=== PATIENT | male | born 1995 ===

== ENCOUNTER 2018-11-11 04:54 | Inpatient (IN) | payer OTHER ==
--- NOTE | 2018-11-11 05:40 | ED PDOC ---
HPI: Psych/Substance Abuse Time Seen by Provider: 11/11/18 05:23 Chief Complaint (Nursing): Psychiatric Evaluation Chief Complaint (Provider): crisis eval History Per: Patient, EMS Additional Complaint(s): 23 y/o male brought in by EMS for psychiatric evaluation. As per EMS, patient's friend called 911 stating he expressed thoughts of suicide. Patient admits to drinking last night, states he was suicidal earlier because his parents forgot about him on his birthday and [place]. Patient denies suicidal/homicidal ideations at present, hallucinations, acute physical complaints. Past Medical History Reviewed: Historical Data, Nursing Documentation, Vital Signs Vital Signs: Last Vital Signs Temp 98.0 F 11/11/18 05:12 Pulse 96 H 11/11/18 05:12 Resp 17 11/11/18 05:12 BP 154/75 H 11/11/18 05:12 Pulse Ox 99 11/11/18 05:12 - Medical History PMH: Depression, HTN - Surgical History Surgical History: No Surg Hx - Family History Family History: States: No Known Family Hx - Living Arrangements Living Arrangements: Alone - Social History Current smoker - smoking cessation education provided: No Alcohol: Occasional Drugs: Cannabis - Allergies Allergies/Adverse Reactions: Allergies Allergy/AdvReac Type Severity Reaction Status Date / Time Unobtainable Allergy Verified 11/11/18 05:37 Review of Systems ROS Statement: Except As Marked, All Systems Reviewed And Found Negative Psych: Positive for: Suicidal ideation Physical Exam - Reviewed Nursing Documentation Reviewed: Yes Vital Signs Reviewed: Yes - Physical Exam Appears: Positive for: Well, Non-toxic, No Acute Distress Head Exam: Positive for: ATRAUMATIC, NORMAL INSPECTION, NORMOCEPHALIC Skin: Positive for: Normal Color Eye Exam: Positive for: Normal appearance ENT: Positive for: Normal ENT Inspection Cardiovascular/Chest: Positive for: Regular Rate, Rhythm Respiratory: Positive for: Normal Breath Sounds Gastrointestinal/Abdominal: Positive for: Normal Exam Back: Positive for: Normal Inspection Extremity: Positive for: Normal ROM Neurologic/Psych: Positive for: Alert, Oriented (x3) - ECG O2 Sat by Pulse Oximetry: 99 - Progress ED Course And Treament: -cbc -cmp -alcohol -urine drug screen -urinalysis -crisis eval -1:1 Disposition - Clinical Impression Clinical Impression: Suicidal ideations - Patient ED Disposition Is Patient to be Admitted: No - Disposition Disposition Time: 06:00 Condition: STABLE Forms: [employer] (Sinhala) Patient Signed Over To: Karey Thacker Handoff Comments: pending labs, crisis eval
[2018-11-11 06:32] LABS: BASO # 0.1 K/uL (0.0-0.2); BASO % 0.7 % (0.0-2.0); EOS # 0.1 K/uL (0.0-0.7); EOS % 1.4 % (0.0-4.0); LYMPH # 2.6 K/uL (1.0-4.3); LYMPH % 29.8 % (20.0-40.0); MEAN CELL VOLUME 86.7 fl (80.0-94.0); MEAN CORPUSCULAR HEMOGLOBIN 29.6 pg (27.0-31.0); MEAN CORPUSCULAR HGB CONC 34.1 g/dL (33.0-37.0); MEAN PLATELET VOLUME 7.4 fl (7.2-11.7); MONO # 0.7 K/uL (0.0-0.8); MONO % 7.5 % (0.0-10.0); NEUT # 5.3 K/uL (1.8-7.0); NEUT % 60.6 % (50.0-75.0); NRBC % 0.2 % (0.0-0.0); RBC 5.41 Mil/uL (4.40-5.90); WHITE BLOOD COUNT 8.7 K/uL (4.8-10.8)
[2018-11-11 06:42] LABS: ALB/GLOB RATIO 1.2 (1.0-2.1); ALBUMIN 4.7 g/dL (3.5-5.0); ALT/SGPT 65 U/L (21-72); AST/SGOT 47 U/L (17-59); BLOOD UREA NITROGEN 9 mg/dl (9-20); GFR NON-AFRICAN AMERICAN > 60
--- NOTE | 2018-11-11 07:18 | ED PDOC ---
- Laboratory Results Result Diagrams: 11/11/18 06:15 11/11/18 06:15 - ECG O2 Sat by Pulse Oximetry: 99 Medical Decision Making Medical Decision Makin Patient care endorsed from Dr. Thacker to this provider pending crisis evaluation and reevaluation. Medically stable for psychiatric admission Scribe Attestation: Documented by Renata Grimm, acting as a scribe for Vincent Martinez MD. Provider Scribe Attestation: All medical record entries made by the Scribe were at my direction and personally dictated by me. I have reviewed the chart and agree that the record accurately reflects my personal performance of the history, physical exam, medical decision making, and the department course for this patient. I have also personally directed, reviewed, and agree with the discharge instructions and disposition. Disposition - Clinical Impression Clinical Impression: Suicidal ideations - POA Present On Arrival: None - Disposition Disposition: Admitted as In-Patient Disposition Time: 12:51 Condition: FAIR Forms: [employer] (Montenegrin)
[2018-11-11 08:17] LABS: URINE BILIRUBIN NEGATIVE (NEGATIVE); URINE BLOOD NEGATIVE (NEGATIVE); URINE CLARITY CLEAR (Clear); URINE COLOR YELLOW (YELLOW); URINE GLUCOSE (UA) NEG (NEGATIVE); URINE LEUKOCYTE ESTERASE NEG Leu/uL (Negative); URINE PROTEIN NEGATIVE (NEGATIVE); URINE UROBILINOGEN 0.2-1.0 mg/dL (0.2-1.0)
[2018-11-11 08:31] LABS: BARBITURATES, UR NEGATIVE (NEGATIVE); BENZODIAZEPINES, UR NEGATIVE (NEGATIVE); OPIATES, UR NEGATIVE (NEGATIVE); PHENCYCLIDINE, UR NEGATIVE (NEGATIVE)
--- NOTE | 2018-11-11 13:02 | CP.PCM.CON ---
History of Present Illness - History of Present Illness History of Present Illness: face to face evaluation pt is 23ys old male with previous psychiatric diagnosis of bipolar disorder and ADHD, borught to ER by police after texting a friend a suicidal note, providing him his bank and life insurance information pt reported has been increasingly depressed due to lack of support by his family feeling abandoned by his mother and also increase stress at work, reported that while intoxicated all the emotions came out and he started feeling that his life is worthless pt is increasinlgy anxious tearful and overwhelmed collateral information Friend reports that he received a text message from the pt stating that he was going to kill himself. This PES observed text message which appeared detailed and elaborate. Message did not contain a suicide plan but stated that pt would be before friend arrived and pt provide friend with pin number to his bank account. Friend reports pt's trigger being that no one reached out to him on his birthday nor [place]. Friend reports pt was very upset with his mother for forgetting about him on his birthday. Friend reports that pt employment has been a bit of a stressor for him as well. Friend states that pt recently obtained his job after leaving [employer]. Friend states since leaving [employer] he was offered an important position that entails a lot of responsibilities. Past Patient History - Past Social History Alcohol: Occasional Drugs: Cannabis - CARDIAC Hx Hypertension: Yes - PSYCHIATRIC Hx Depression: Yes - SURGICAL HISTORY Hx Surgeries: No - ANESTHESIA Hx Anesthesia: No Meds Allergies/Adverse Reactions: Allergies Allergy/AdvReac Type Severity Reaction Status Date / Time No Known Allergies Allergy Verified 11/11/18 07:47 Physical Exam - Psychiatric Exam Additional comments: pt seen in bed partial eye contact depressed mood tearful affect, thought form circumstantial,, passive suicidal ideation no plan denied homicidal ideation denied perceptual disturbances, alert awake ox3 Results - Vital Signs Recent Vital Signs: Last Vital Signs Temp 98.0 F 11/11/18 05:12 Pulse 96 H 11/11/18 05:12 Resp 17 11/11/18 05:12 BP 154/75 H 11/11/18 05:12 Pulse Ox 99 11/11/18 12:51 - Labs Result Diagrams: 11/11/18 06:15 11/11/18 06:15 Labs: Laboratory Results - last 24 hr 12/29/18 12/29/18 12/29/18 06:15 06:15 08:05 WBC 8.7 RBC 5.41 Hgb 16.0 Hct 46.9 MCV 86.7 MCH 29.6 MCHC 34.1 RDW 13.0 Plt Count 321 MPV 7.4 Neut % (Auto) 60.6 Lymph % (Auto) 29.8 [place] % (Auto) 7.5 Eos % (Auto) 1.4 Baso % (Auto) 0.7 Neut # (Auto) 5.3 Lymph # (Auto) 2.6 [place] # (Auto) 0.7 Eos # (Auto) 0.1 Baso # (Auto) 0.1 Sodium 144 Potassium 3.9 Chloride 108 H Carbon Dioxide 21 L Anion Gap 19 BUN 9 Creatinine 0.7 L Est GFR ( Amer) > 60 Est GFR (Non-Af Amer) > 60 Random Glucose 116 H Calcium 9.0 Total Bilirubin 0.2 AST 47 ALT 65 Alkaline Phosphatase 88 Total Protein 8.5 H Albumin 4.7 Globulin 3.8 Albumin/Globulin Ratio 1.2 Urine Color Urine Clarity Urine pH Ur Specific [place] Urine Protein Urine Glucose (UA) Urine Ketones Urine Blood Urine Nitrate Urine Bilirubin Urine Urobilinogen Ur Leukocyte Esterase Urine RBC (Auto) Urine Microscopic WBC Urine Opiates Screen Negative Urine Methadone Screen Negative Ur Barbiturates Screen Negative Ur Phencyclidine Scrn Negative Ur Amphetamines Screen Negative U Benzodiazepines Scrn Negative U Oth Cocaine Metabols Negative U Cannabinoids Screen Positive H Alcohol, Quantitative 135 H 11/11/18 08:05 WBC RBC Hgb Hct MCV MCH MCHC RDW Plt Count MPV Neut % (Auto) Lymph % (Auto) [place] % (Auto) Eos % (Auto) Baso % (Auto) Neut # (Auto) Lymph # (Auto) [place] # (Auto) Eos # (Auto) Baso # (Auto) Sodium Potassium Chloride Carbon Dioxide Anion Gap BUN Creatinine Est GFR ( Amer) Est GFR (Non-Af Amer) Random Glucose Calcium Total Bilirubin AST ALT Alkaline Phosphatase Total Protein Albumin Globulin Albumin/Globulin Ratio Urine Color Yellow Urine Clarity Clear Urine pH 6.0 Ur Specific [place] 1.017 Urine Protein Negative Urine Glucose (UA) Neg Urine Ketones Negative Urine Blood Negative Urine Nitrate Negative Urine Bilirubin Negative Urine Urobilinogen 0.2-1.0 Ur Leukocyte Esterase Neg Urine RBC (Auto) 1 Urine Microscopic WBC < 1 Urine Opiates Screen Urine Methadone Screen Ur Barbiturates Screen Ur Phencyclidine Scrn Ur Amphetamines Screen U Benzodiazepines Scrn U Oth Cocaine Metabols U Cannabinoids Screen Alcohol, Quantitative Assessment & Plan - Assessment and Plan (Free Text) Assessment: bipolar disorder depressed Plan: pt at current mental status is a risk for suicide pt not agreeable for voluntry admission pt will be referred for [facility] for involuntary admission
[2018-11-11 13:46] VITALS: O2SAT 98
[2018-11-11] MEDS ORDERED: Alum-Mag Hydrox-Simethicone Susp (30 mL) PO PRN (14:14)
[2018-11-11] MEDS ORDERED: Magnesium Hydroxide Susp 30 ml UD PO PRN (14:14)
[2018-11-11] MEDS ORDERED: DiphenhydrAMINE 50 mg/ml Inj IM PRN (14:14)
--- NOTE | 2018-11-11 15:12 | PCM.BM ---
Treatment assets and liabiliti Patient Assests: cooperative, self-reliant, ADL independent, physically healthy, financial stabiity Patient Liabilities: relationship conflicts, substance abuse - Milieu Protocol Maintain good personal hygiene: daily Encourage regular showers, daily Remind patient to perform daily oral care, daily Assist patient to perform ADL's Conduct patient checks and document Observation sheet: Q15 minutes Maintain personal safety: every shift Educate patient to report safety concerns to staff, every shift Monitor environment for contraband/sharps Medication safety: Monitor for expected outcome, potential side effects: daily, Assess barriers to learning: daily, Assess readiness for medication education: daily
--- NOTE | 2018-11-11 15:18 | RAD ---
Date of service: 11/11/2018 HISTORY: cough COMPARISON: No prior. FINDINGS: LUNGS: No active pulmonary disease. PLEURA: No significant pleural effusion identified, no pneumothorax apparent. CARDIOVASCULAR: No aortic atherosclerotic calcification present. Normal cardiac size. No pulmonary vascular congestion. OSSEOUS STRUCTURES: No significant abnormalities. VISUALIZED UPPER ABDOMEN: Normal. OTHER FINDINGS: None. IMPRESSION: No active disease.
--- NOTE | 2018-11-11 15:23 | CP.PCM.CON ---
History of Present Illness - History of Present Illness History of Present Illness: 23 yo male with history of Bipolar DO and ADHD admitted in psyche unit because of suicidal ideation + Review of Systems - Review of Systems All systems: reviewed and no additional remarkable complaints except (aside from those mentioned above, 12 point system review were negative by me) Past Patient History - Tetanus Immunizations Tetanus Immunization: Unknown - Past Social History Smoking Status: Never Smoked Chewing Tobacco Use: No Cigar Use: No Alcohol: Occasional Drugs: Cannabis - CARDIAC Hx Cardiac Disorders: Yes (HTN dx x1yr) Hx Hypertension: Yes (x 1 yr) - PULMONARY Hx Respiratory Disorders: No - NEUROLOGICAL Hx Neurological Disorder: No - HEENT Hx HEENT Problems: No - RENAL Hx Chronic Kidney Disease: No - ENDOCRINE/METABOLIC Hx Endocrine Disorders: No - HEMATOLOGICAL/ONCOLOGICAL Hx Blood Disorders: No - INTEGUMENTARY Hx Dermatological Problems: No - MUSCULOSKELETAL/RHEUMATOLOGICAL Hx Musculoskeletal Disorders: No - GASTROINTESTINAL Hx Gastrointestinal Disorders: No - GENITOURINARY/GYNECOLOGICAL Hx Genitourinary Disorders: No - PSYCHIATRIC Hx Depression: Yes Hx Physical Abuse: No Hx Sexual Abuse: No Hx Substance Use: Yes (pot about once a month) - SURGICAL HISTORY Hx Surgeries: No - ANESTHESIA Hx Anesthesia: No Meds Allergies/Adverse Reactions: Allergies Allergy/AdvReac Type Severity Reaction Status Date / Time No Known Allergies Allergy Verified 11/11/18 07:47 - Medications Medications: Current Medications Acetaminophen (Tylenol 325mg Tab) 650 mg PO Q4 PRN PRN Reason: Pain, Mild (4-7) Al Hydrox/Mg Hydrox/Simethicone (Maalox Plus 30 Ml) 30 ml PO Q4 PRN PRN Reason: Dyspepsia Aripiprazole (Abilify) 15 mg PO DAILY DAVON Diphenhydramine HCl (Benadryl) 50 mg IM Q6 PRN PRN Reason: Extrapyramidal S/S Unable PO Diphenhydramine HCl (Benadryl) 50 mg PO HS PRN PRN Reason: Sleep Diphenhydramine HCl (Benadryl) 50 mg PO Q6 PRN PRN Reason: for sleep Haloperidol (Haldol) 5 mg PO Q4 PRN PRN Reason: Agitation Haloperidol Lactate (Haldol) 5 mg IM Q4 PRN PRN Reason: Agitation, Unable to Take PO Lorazepam (Ativan) 2 mg IM Q4 PRN PRN Reason: Anxiety/Agitation,Unable PO Lorazepam (Ativan) 2 mg PO Q8 PRN PRN Reason: Anxiety Magnesium Hydroxide (Milk Of Magnesia) 30 ml PO HS PRN PRN Reason: Constipation Trazodone HCl (Desyrel) 50 mg PO HS PRN PRN Reason: Sleep Physical Exam - Constitutional Appears: No Acute Distress - Head Exam Head Exam: ATRAUMATIC - Eye Exam Eye Exam: absent: Scleral icterus - ENT Exam ENT Exam: Mucous Membranes Moist - Neck Exam Neck exam: Negative for: Meningismus - Respiratory Exam Respiratory Exam: absent: Rales, Rhonchi, Wheezes, Respiratory Distress - Cardiovascular Exam Cardiovascular Exam: REGULAR RHYTHM, +S1, +S2 - GI/Abdominal Exam GI & Abdominal Exam: Soft. absent: Tenderness - Rectal Exam Rectal Exam: Deferred - Extremities Exam Extremities exam: Negative for: calf tenderness, pedal edema - Back Exam Back exam: NORMAL INSPECTION - Neurological Exam Neurological exam: Alert, Oriented x3 - Psychiatric Exam Psychiatric exam: Normal Affect - Skin Skin Exam: Dry, Intact Results - Vital Signs Recent Vital Signs: Last Vital Signs Temp 98.5 F 11/11/18 13:53 Pulse 78 11/11/18 13:53 Resp 18 11/11/18 14:05 BP 143/87 11/11/18 13:53 Pulse Ox 98 11/11/18 13:53 - Labs Result Diagrams: 11/11/18 06:15 11/11/18 06:15 Labs: Laboratory Results - last 24 hr 11/11/18 11/11/18 11/11/18 06:15 06:15 08:05 WBC 8.7 RBC 5.41 Hgb 16.0 Hct 46.9 MCV 86.7 MCH 29.6 MCHC 34.1 RDW 13.0 Plt Count 321 MPV 7.4 Neut % (Auto) 60.6 Lymph % (Auto) 29.8 [place] % (Auto) 7.5 Eos % (Auto) 1.4 Baso % (Auto) 0.7 Neut # (Auto) 5.3 Lymph # (Auto) 2.6 [place] # (Auto) 0.7 Eos # (Auto) 0.1 Baso # (Auto) 0.1 Sodium 144 Potassium 3.9 Chloride 108 H Carbon Dioxide 21 L Anion Gap 19 BUN 9 Creatinine 0.7 L Est GFR ( Amer) > 60 Est GFR (Non-Af Amer) > 60 Random Glucose 116 H Calcium 9.0 Total Bilirubin 0.2 AST 47 ALT 65 Alkaline Phosphatase 88 Total Protein 8.5 H Albumin 4.7 Globulin 3.8 Albumin/Globulin Ratio 1.2 Urine Color Urine Clarity Urine pH Ur Specific [place] Urine Protein Urine Glucose (UA) Urine Ketones Urine Blood Urine Nitrate Urine Bilirubin Urine Urobilinogen Ur Leukocyte Esterase Urine RBC (Auto) Urine Microscopic WBC Urine Opiates Screen Negative Urine Methadone Screen Negative Ur Barbiturates Screen Negative Ur Phencyclidine Scrn Negative Ur Amphetamines Screen Negative U Benzodiazepines Scrn Negative U Oth Cocaine Metabols Negative U Cannabinoids Screen Positive H Alcohol, Quantitative 135 H 11/11/18 08:05 WBC RBC Hgb Hct MCV MCH MCHC RDW Plt Count MPV Neut % (Auto) Lymph % (Auto) [place] % (Auto) Eos % (Auto) Baso % (Auto) Neut # (Auto) Lymph # (Auto) [place] # (Auto) Eos # (Auto) Baso # (Auto) Sodium Potassium Chloride Carbon Dioxide Anion Gap BUN Creatinine Est GFR ( Amer) Est GFR (Non-Af Amer) Random Glucose Calcium Total Bilirubin AST ALT Alkaline Phosphatase Total Protein Albumin Globulin Albumin/Globulin Ratio Urine Color Yellow Urine Clarity Clear Urine pH 6.0 Ur Specific [place] 1.017 Urine Protein Negative Urine Glucose (UA) Neg Urine Ketones Negative Urine Blood Negative Urine Nitrate Negative Urine Bilirubin Negative Urine Urobilinogen 0.2-1.0 Ur Leukocyte Esterase Neg Urine RBC (Auto) 1 Urine Microscopic WBC < 1 Urine Opiates Screen Urine Methadone Screen Ur Barbiturates Screen Ur Phencyclidine Scrn Ur Amphetamines Screen U Benzodiazepines Scrn U Oth Cocaine Metabols U Cannabinoids Screen Alcohol, Quantitative Assessment & Plan (1) Suicidal ideations Status: Acute Comment: psyche is managing
[2018-11-12 07:41] LABS: T4 6.42 ug/dl (5.5-11.0)
--- NOTE | 2018-11-12 12:52 | PCM.PSYCH ---
Initial Psychiatric Evaluation - Initial Psychiatric Evaluation Type of Admission: Voluntary Legal Status: Capacity Chief Complaint (in patient's own words): I wanted to get some care and attention History of Present Illness and Precipitating Events: pt is 23ys old male with previous psychiatric diagnosis of bipolar disorder and ADHD, borught to ER by police after texting a friend a suicidal note, providing him his bank and life insurance information, stating that he does not want to contine any more pt reported has been increasingly depressed due to lack of support by his family feeling abandoned by his mother who forgot his birthday and made him feel unwanted in [place] , pt also reported increased stress at work, with changing job recently and having overwhelming responsibilities reported that while intoxicated all the emotions came out and he started feeling that his life is worthless , he took more pills of klonopin and adderall with alcohol, and texted suicidal note to his best friend Current Medications: Active Medications Generic Name Dose Route Start Last Admin Trade Name Freq PRN Reason Stop Dose Admin Acetaminophen 650 mg 11/11/18 14:14 Tylenol 325mg Tab PO Q4 PRN Pain, Mild (4-7) Al Hydrox/Mg Hydrox/Simethicone 30 ml 11/11/18 14:14 Maalox Plus 30 Ml PO Q4 PRN Dyspepsia Aripiprazole 10 mg 11/12/18 22:00 Abilify PO HS DAVON Diphenhydramine HCl 50 mg 11/11/18 14:14 Benadryl IM Q6 PRN Extrapyramidal S/S Unable PO Diphenhydramine HCl 50 mg 11/11/18 14:22 11/11/18 22:04 Benadryl PO 50 mg HS PRN Administration Sleep Diphenhydramine HCl 50 mg 11/11/18 14:23 Benadryl PO Q6 PRN for sleep Haloperidol 5 mg 11/11/18 14:14 Haldol PO Q4 PRN Agitation Haloperidol Lactate 5 mg 11/11/18 14:14 Haldol IM Q4 PRN Agitation, Unable to Take PO Lorazepam 2 mg 11/11/18 14:14 Ativan IM Q4 PRN Anxiety/Agitation,Unable PO Lorazepam 2 mg 11/11/18 14:24 Ativan PO Q8 PRN Anxiety Magnesium Hydroxide 30 ml 11/11/18 14:14 Milk Of Magnesia PO HS PRN Constipation Trazodone HCl 50 mg 11/11/18 14:44 Desyrel PO HS PRN Sleep Past Psychiatric History - Past Psychiatric History Explanation of prior treatment: one hospitalization at age 14 for suicidal attempt History of ETOH/Drug Use: denied History of Family Illness: father hx of alcohol use in remission Pertinent Medical Hx (Current Medical&Sleep Prob, Allergies): Allergies Allergy/AdvReac Type Severity Reaction Status Date / Time No Known Allergies Allergy Verified 11/11/18 07:47 ARIPiprazole [Abilify] 15 mg pe PO DAILY 11/11/18 Dextroamphetamine/Amphetamine [Adderall 20 mg Tablet] 20 mg PO TID 11/11/18 MetFORMIN [glucoPHAGE] 1,000 mg PO DAILY 11/11/18 OXcarbazepine [Trileptal] 300 mg PO BID 11/11/18 Mental Status Examination - Personal Presentation Personal Presentation: Looks stated age - Affect Affect: Constricted, Depressed Additional comments: tearful - Motor Activity Motor Activity: Calm - Reliability in Providing Information Reliability in Providing Information: Fair Additional comments: guarded - Mood Mood: Depressed, Anxious - Formal Thought Process Formal Thought Process: Circumstantial - Obsessions/Compulsions Obsessions: No Compulsions: No - Cognitive Functions Orientation: Person, Place, Situation Sensorium: Alert Attention/Concentration: Attentive Judgement: Imparied, as evidence by: Poor judgement - Risk Risk: Suicidal, Diminished functioning - Strength & Assets Inventory Strength & Assets Inventory: Life experience - Limitations Additional comments: conflict with primary support group DSM 5 DX - DSM 5 DSM 5 Diagnosis: bipolar disorder depressed - Recommended/Plan of Treatment Treatment Recommendations and Plan of Treatment: start abilify 10mg qhs CBT group and supportive therapy will contact private psychiatrist and therapist
--- NOTE | 2018-11-12 20:58 | CARD ---
APPROVED REPORT Date of service: 11/11/2018 EKG Measurement Heart [id number] <Conclusion> Normal sinus rhythm Normal ECG
--- NOTE | 2018-11-13 12:48 | PCM.PYCHPN ---
Psychiatric Progress Note - Psychiatric Progress Note Patient seen today, length of contact: pt evaluated discussed with team chart reviewed Patient Chief Complaint: I need to leave Problems Identified/Issues Discussed: pt evaluated with treatment team presenting with anxious mood and affect, pt guarded minimizing his recent suicidal attempt, showing limited insight reporting his main goal was to seek attention, pt requesting to be discharged, discussed with pt the need for intensive therapy for healthier coping skills with stress and the importance for medication stabilization, pt continues to request to be discharged treatment plan discussed with his private therapist upon the patient consent Medical Problems: one hospitalization at age 14 for suicidal attempt DSM 5 Symptoms Update: bipolar II disorder MRE depressed borderline personality traits Medication Change: No Medical Record Reviewed: Yes Mental Status Examination - Cognitive Function Orientation: Person, Place, Situation Attention: WNL Concentration: WNL Association: WNL Fund of Knowledge: WN Decription of patient's judgement and insights: partial insight, poor impulse control - Mood Mood: Depressed, Anxious - Affect Affect: Constricted, Depressed - Speech Speech: Soft, Pressured - Formal Thought Process Formal Thought Process: Circumstantial - Suicidal Ideation Suicidal Ideation: No - Homicidal Ideation Homicidal Ideation: No Goal/Treatment Plan - Goal/Treatment Plan Need for Continued Stay: Severe depression anxiety, Discharge may exacerbated symptoms Progress Toward Problem(s) and Goals/Treatment Plan: pt requesting to be discharged, showing limited insight into illness and minimizing his recent suicidal gesture pt will be screened for involuntary admission for possible further stabilizationt abilify 10mg qhs CBT group and supportive therapy
--- NOTE | 2018-11-14 10:03 | PCM.PYCHDC ---
Mental Status Examination - Mental Status Examination Orientation: Person, Place, Situation Memory: Intact Mood: Neutral Affect: Broad Speech: Appropriate Attention: WNL Concentration: WNL Formal Thought Process: Circumstantial Description of patient's judgement and insight: partial insight, poor impulse control Psychotic Thoughts and Behaviors: pt denied perceptual disturbances, non elicited Suicidal Ideation: No Current Homicidal Ideation?: No Discharge Summary - Discharge Note Reason for Hospitalization: pt is 23ys old male with previous psychiatric diagnosis of bipolar disorder and ADHD, borught to ER by police after texting a friend a suicidal note, providing him his bank and life insurance information, stating that he does not want to contine any more pt reported has been increasingly depressed due to lack of support by his family feeling abandoned by his mother who forgot his birthday and made him feel unwanted in [place] , pt also reported increased stress at work, with changing job recently and having overwhelming responsibilities reported that while intoxicated all the emotions came out and he started feeling that his life is worthless , he took more pills of klonopin and adderall with alcohol, and texted suicidal note to his best friend Laboratory Data: Abnormal Lab Results 11/11/18 12:52 Hemoglobin A1c 5.0 Consultations:: List each consultation separately and include: 1. Reason for request. 2. Findings. 3. Follow-up Summary of Hospital Course include:: 1. Description of specific treatment plan utilized for patients during their course of treatmen. 2. Summarize the time- course for resolution of acute symptoms and/or regressed behaviors. 3. Describe issues identified and worked on during hospitalization. 4. Describe medication utilized. 5. Describe medical problems identified and treated. 6. Reassessment of suicide risk Summary of Hospital Course: pt on admission was started on abilify 10mg for mood stabilization and impulse control, pt requested to be discharged refused to continue with treatment, [place] [facility] [place], pt was found not to meet criteria for involuntary admission pt signed against medical advise, on discharge pt denied any current suicidal or homicidal ideation denied perceptual disturbances treatment plan was discussed with his private therapist upon pt consent - Final Diagnosis (DSM 5) Condition upon Discharge: FAIR DSM 5: bipolar ii disorder borderline personality traits Disposition: HOME/ ROUTINE Follow-up Treatment Plan: pt requesting to be discharged, showing limited insight into illness and minimizing his recent suicidal gesture pt will be screened for involuntary admission for possible further stabilizationt abilify 10mg qhs CBT group and supportive therapy - Antipsychotic Medications Pt discharged on 2 or more routine antipsychotic medications: No
[2018-11-14 10:14] VITALS: BP 149/101; PULSE 94
[2018-11-14 10:36] VITALS: RESP 20; TEMP 98.6
== END 2018-11-14 10:25 | disposition home or self-care (01) | DRG 885 ==
LOC: H.ER 04:54 → H.ERHOLD 12:52 → H.PSYCH 13:59
PROVIDERS: ADMIT Psychiatry & Neurology Psychiatry; ATTEND Psychiatry & Neurology Psychiatry
PROC: GZHZZZZ Group Psychotherapy (ICD-10-PCS; principal; 2018-11-11)
PROC: GZ58ZZZ Individual Psychotherapy, Cognitive-Behavioral (ICD-10-PCS; 2018-11-11)
PROC: GZ56ZZZ Individual Psychotherapy, Supportive (ICD-10-PCS; 2018-11-11)
DX: F31.81 Bipolar II disorder (principal); R45.851 Suicidal ideations; F90.9 Attention-deficit hyperactivity disorder, unspecified type; I10 Essential (primary) hypertension; F10.129 Alcohol abuse with intoxication, unspecified; Y90.6 Blood alcohol level of 120-199 mg/100 ml; F60.3 Borderline personality disorder